=== PATIENT | female | born 1960 ===

== ENCOUNTER 2020-02-08 16:29 | Inpatient (IN) | payer OTHER ==
[~2020-02-08] VITALS: Ht 154.9 cm; Wt 58.0 kg
[2020-02-08] MEDS ORDERED: ONDANSETRON PF 4 MG/2 ML VIAL. IVP ONE ×2 (17:15→19:30)
[2020-02-08] MEDS ORDERED: IV NORMAL SALINE 1,000ML 1,000 ML IV ONE (17:15)
[2020-02-08] MEDS ORDERED: MECLIZINE 12.5 MG TABLET. PO ONE (17:15)
[2020-02-08 17:28] LABS: BASO % 0 % (0-3); EOS # 0.1 x10^3/uL (0.0-0.7); EOS % 1 % (0-3); HEMATOCRIT 36.8 % (36.0-47.0); HEMOGLOBIN 12.1 g/dL (12.0-15.5); LYMPH # 2.8 x10^3/uL (1.0-4.8); LYMPH % 35 % (24-48); MEAN CORPUSCULAR HEMOGLOBIN 31 pg (25-35); MEAN CORPUSCULAR HGB CONC 33 g/dL (31-37); MEAN CORPUSCULAR VOLUME 93 fL (79-100); MONO # 0.5 x10^3/uL (0.0-1.1); MONO % 6 % (0-9); NEUT # 4.5 x10^3uL (1.8-7.7); NEUT % 58 % (31-73); PLATELET COUNT 240 x10^3/uL (140-400); RED BLOOD COUNT 3.94 x10^6/uL (3.50-5.40); RED CELL DISTRIBUTION WIDTH 14.3 % (11.5-14.5); WHITE BLOOD COUNT 7.8 x10^3/uL (4.0-11.0)
[2020-02-08 17:31] LABS: CALCIUM 9.1 mg/dL (8.5-10.1); CREATININE 0.8 mg/dL (0.6-1.0); GFR 73.4; POTASSIUM 3.1 mmol/L (3.5-5.1)
[2020-02-08 17:37] LABS: ALBUMIN 3.7 g/dL (3.4-5.0); ALBUMIN/GLOBULIN RATIO 0.8 (1.0-1.7); TOTAL BILIRUBIN 0.6 mg/dL (0.2-1.0); TOTAL PROTEIN 8.1 g/dL (6.4-8.2)
--- NOTE | 2020-02-08 17:40 | RAD ---
EXAM: CT Head without IV contrast CLINICAL HISTORY: Vertigo COMPARISON: None. TECHNIQUE: Routine CT of the head without contrast. PQRS compliance statement - One or more of the following individualized dose reduction techniques wer e utilized for this study: 1. Automated exposure control 2. Adjustment of the mA and/or kV according to patient size 3. Use of iterative reconstruction technique FINDINGS: There is no evidence of hemorrhage, mass or extra-axial fluid collection. Farrar-white differentiation is maintained with no evidence of edema. There is no mass effect or shift of the intracranial structures. The ventricles, basilar cisterns and cortical sulci are normal in size and configuration for the cheryl ents stated age. The cerebellum and brainstem are unremarkable. The calvarium demonstrates no evidence of fracture or focal lesion. There is normal aeration of the visualized paranasal sinuses and mastoid air cells. The visualized portions of the orbits are normal. IMPRESSION: No evidence for acute intracranial process. Electronically signed by: Nahid Arevalo MD (02/08/2020 5:38 PM) [facility]
--- NOTE | 2020-02-08 17:47 | PHYS DOC ---
Past History Past Medical History: No Pertinent History (ALEX BRASHER MD) Past Surgical History: Appendectomy, (ALEX BRASHER MD) Alcohol Use: None (ALEX BRASHER MD) General Adult EDM: Chief Complaint: NAUSEA/VOMITING/DIARRHEA HPI: HPI: 59-year-old female coming in with "dizziness" since 930 this morning. Patient says she was reading when symptoms started. Denies any falls, head trauma. States the symptoms are worse with movement and better with rest. She has vomited 3 times today due to vertigo. Patient has not had similar symptoms in the past. Denies any recent illness. Denies any hearing changes or ear pain. Denies any weakness, paresthesias or numbness. Denies any diplopia or blurred vision. No headaches. Denies any diarrhea, cough, fevers, neck pain. (ALEX BRASHER MD) Review of Systems: Review of Systems: All other systems within normal limits except for as noted in the HPI (ALEX BRASHER MD) Current Medications: Current Meds: Current Medications Medications (Trade) Dose Ordered Sig/Ann Marie Start Time Stop Time Status Last Admin Dose Admin Meclizine HCl (Antivert) 25 mg 1X ONCE 02/08/20 17:15 02/08/20 17:16 UNV Ondansetron HCl (Zofran) 4 mg 1X ONCE 02/08/20 17:15 02/08/20 17:16 UNV Sodium Chloride 1,000 ml @ 1,000 mls/hr 1X ONCE 02/08/20 17:15 02/08/20 18:14 UNV (ALEX BRASHER MD) Allergies: Allergies: Allergies Coded Allergies Type Severity Reaction Last Updated Verified No Known Drug Allergies 02/08/20 No (ALEX BRASHER MD) Physical Exam: PE: Constitutional: Well developed, well nourished, moderate distress, non-toxic appearance. [] HENT: Normocephalic, atraumatic, bilateral external ears normal, nose normal. [] TMs normal Eyes: PERRLA, conjunctiva normal, no discharge. [] Bilateral nystagmus Neck: No rigidity, supple, no stridor. [] Cardiovascular: Regular rate and rhythm, brisk cap refill [] Lungs & Thorax: Non labored symmetric respirations, no tachypnea or respiratory distress [] Abdomen: Soft, nondistended. Skin: Warm, dry, no erythema, no rash. [] Back: No tenderness, no CVA tenderness. [] Extremities: No deformities, range of motion grossly intact, no lower extremity edema [] Neurologic: Alert and oriented X 3, no focal deficits noted however exam somewhat limited due to patient cooperation due to discomfort. Psychologic: Affect normal, judgement normal, mood normal. [] (ALEX BRASHER MD) Current Patient Data: Labs: Laboratory Tests Test 02/08/20 16:42 White Blood Count 7.8 x10^3/uL (4.0-11.0) Red Blood Count 3.94 x10^6/uL (3.50-5.40) Hemoglobin 12.1 g/dL (12.0-15.5) Hematocrit 36.8 % (36.0-47.0) Mean Corpuscular Volume 93 fL (79-100) Mean Corpuscular Hemoglobin 31 pg (25-35) Mean Corpuscular Hemoglobin Concent 33 g/dL (31-37) Red Cell Distribution Width 14.3 % (11.5-14.5) Platelet Count 240 x10^3/uL (140-400) Neutrophils (%) (Auto) 58 % (31-73) Lymphocytes (%) (Auto) 35 % (24-48) Monocytes (%) (Auto) 6 % (0-9) Eosinophils (%) (Auto) 1 % (0-3) Basophils (%) (Auto) 0 % (0-3) Neutrophils # (Auto) 4.5 x10^3uL (1.8-7.7) Lymphocytes # (Auto) 2.8 x10^3/uL (1.0-4.8) Monocytes # (Auto) 0.5 x10^3/uL (0.0-1.1) Eosinophils # (Auto) 0.1 x10^3/uL (0.0-0.7) Basophils # (Auto) 0.0 x10^3/uL (0.0-0.2) Sodium Level 138 mmol/L (136-145) Potassium Level 3.1 mmol/L (3.5-5.1) L Chloride Level 101 mmol/L (98-107) Carbon Dioxide Level 28 mmol/L (21-32) Anion Gap 9 (6-14) Blood Urea Nitrogen 13 mg/dL (7-20) Creatinine 0.8 mg/dL (0.6-1.0) Estimated GFR (Cockcroft-Gault) 73.4 BUN/Creatinine Ratio 16 (6-20) Glucose Level 131 mg/dL (70-99) H Calcium Level 9.1 mg/dL (8.5-10.1) Magnesium Level 2.0 mg/dL (1.8-2.4) Total Bilirubin 0.6 mg/dL (0.2-1.0) Aspartate Amino Transferase (AST) 18 U/L (15-37) Alanine Aminotransferase (ALT) 23 U/L (14-59) Alkaline Phosphatase 63 U/L (46-116) Total Protein 8.1 g/dL (6.4-8.2) Albumin 3.7 g/dL (3.4-5.0) Albumin/Globulin Ratio 0.8 (1.0-1.7) L Vital Signs: Vital Signs Date Time Temp Pulse Resp B/P (MAP) Pulse Ox O2 Delivery O2 Flow Rate FiO2 02/08/20 16:38 75 16 157/94 (115) 94 Room Air (ALEX BRASHER MD) Labs: Laboratory Tests Test 02/08/20 16:42 White Blood Count 7.8 x10^3/uL (4.0-11.0) Red Blood Count 3.94 x10^6/uL (3.50-5.40) Hemoglobin 12.1 g/dL (12.0-15.5) Hematocrit 36.8 % (36.0-47.0) Mean Corpuscular Volume 93 fL (79-100) Mean Corpuscular Hemoglobin 31 pg (25-35) Mean Corpuscular Hemoglobin Concent 33 g/dL (31-37) Red Cell Distribution Width 14.3 % (11.5-14.5) Platelet Count 240 x10^3/uL (140-400) Neutrophils (%) (Auto) 58 % (31-73) Lymphocytes (%) (Auto) 35 % (24-48) Monocytes (%) (Auto) 6 % (0-9) Eosinophils (%) (Auto) 1 % (0-3) Basophils (%) (Auto) 0 % (0-3) Neutrophils # (Auto) 4.5 x10^3uL (1.8-7.7) Lymphocytes # (Auto) 2.8 x10^3/uL (1.0-4.8) Monocytes # (Auto) 0.5 x10^3/uL (0.0-1.1) Eosinophils # (Auto) 0.1 x10^3/uL (0.0-0.7) Basophils # (Auto) 0.0 x10^3/uL (0.0-0.2) D-Dimer (Sandy) 0.87 mg/L (0.00-0.50) Sodium Level 138 mmol/L (136-145) Potassium Level 3.1 mmol/L (3.5-5.1) Chloride Level 101 mmol/L (98-107) Carbon Dioxide Level 28 mmol/L (21-32) Anion Gap 9 (6-14) Blood Urea Nitrogen 13 mg/dL (7-20) Creatinine 0.8 mg/dL (0.6-1.0) Estimated GFR (Cockcroft-Gault) 73.4 BUN/Creatinine Ratio 16 (6-20) Glucose Level 131 mg/dL (70-99) Calcium Level 9.1 mg/dL (8.5-10.1) Magnesium Level 2.0 mg/dL (1.8-2.4) Total Bilirubin 0.6 mg/dL (0.2-1.0) Aspartate Amino Transf (AST/SGOT) 18 U/L (15-37) Alanine Aminotransferase (ALT/SGPT) 23 U/L (14-59) Alkaline Phosphatase 63 U/L (46-116) Troponin I Quantitative < 0.017 ng/mL (0-0.055) Total Protein 8.1 g/dL (6.4-8.2) Albumin 3.7 g/dL (3.4-5.0) Albumin/Globulin Ratio 0.8 (1.0-1.7) Vital Signs: Vital Signs Date Time Temp Pulse Resp B/P (MAP) Pulse Ox O2 Delivery O2 Flow Rate FiO2 02/08/20 23:42 Room Air 02/08/20 22:02 97.9 63 20 146/86 (106) 96 (MARY ORDOÑEZ DO) EKG: EKG: Sinus rhythm, heart rate 70 bpm, normal axis, no ectopy, normal intervals, T waves unremarkable, no ST elevation or depression [] (ALEX BRASHER MD) Radiology/Procedures: Radiology/Procedures: EXAM: CT Head without IV contrast CLINICAL HISTORY: Vertigo COMPARISON: None. TECHNIQUE: Routine CT of the head without contrast. PQRS compliance statement - One or more of the following individualized dose reduction techniques were utilized for this study: 1. Automated exposure control 2. Adjustment of the mA and/or kV according to patient size 3. Use of iterative reconstruction technique FINDINGS: There is no evidence of hemorrhage, mass or extra-axial fluid collection. Farrar-white differentiation is maintained with no evidence of edema. There is no mass effect or shift of the intracranial structures. The ventricles, basilar cisterns and cortical sulci are normal in size and configuration for the patients stated age. The cerebellum and brainstem are unremarkable. The calvarium demonstrates no evidence of fracture or focal lesion. There is normal aeration of the visualized paranasal sinuses and mastoid air cells. The visualized portions of the orbits are normal. IMPRESSION: No evidence for acute intracranial process. [] (ALEX BRASHER MD) Radiology/Procedures: CLINICAL HISTORY: Reason: dizziness, tinnitis Omni 350 75cc / Spl. Ins tructions: / History: COMPARISON: None available. TECHNIQUE: CT angiogram of the head and neck was performed following the a dministration of IV contrast. Multiplanar reconstructed images were obtained including 3D reconstructed images performed on an independent work station. Stenosis if present in the carotid arteries were measured using NASCET criteria. PQRS compliance statement - One or more of the following individualized dose reduction techniques were utilized for this study: 1. Automated exposure control 2. Adjustment of the mA and/or kV according to patient size 3. Use of iterative reconstruction technique FINDINGS: CTA of the intracranial circulation reveals normal appearing distal internal carotid arteries including the distal cervical, petrous, cavernous and supraclinoid portions. Foci of gas are seen within the cavernous sinus. The anterior cerebral arteries are well visualized and without evidence of stenosis or occlusion. The middle cerebral arteries are well visualized and without evidence of stenosis or occlusion. The posterior cerebral arteries are well visualized and without evidence of stenosis or occlusion. The vertebral basilar system is normal with no evidence of stenosis or occlusion. In the neck, the origins of the great vessels are unremarkable. The common carotid arteries, bilaterally are normal with no evidence of significant stenosis or occlusion. The internal carotid arteries are normal bilaterally with no evidence of stenosis. The vertebral arteries in the neck are well visualized bilaterally and unremarkable. Several 3-4 mm right upper lobe lung nodules are seen. IMPRESSION: 1. No evidence for high-grade stenosis or occlusion of the intracranial cerebral arteries. 2. No evidence for high-grade stenosis or occlusion of the intracranial or extracranial carotid or vertebral arteries. 3. 3-4 mm right upper lobe lung nodules are seen. Follow-up CT chest in 12 months is recommended. Electronically signed by: Nahid Arevalo MD (02/08/2020 8:02 PM) [facility] (MARY ORDOÑEZ DO) Heart Score: Risk Factors: Risk Factors: DM, Current or recent (<one month) smoker, HTN, HLP, family history of CAD, obesity. Risk Scores: Score 0 - 3: 2.5% MACE over next 6 weeks - Discharge Home Score 4 - 6: 20.3% MACE over next 6 weeks - Admit for Clinical Observation Score 7 - 10: 72.7% MACE over next 6 weeks - Early Invasive Strategies (ALEX BRASHER MD) Course & Med Decision Making: Course & Med Decision Making Pending labs at shift change, care transitioned to Dr. Ordoñez [] (ALEX BRASHER MD) Course & Med Decision Making I assumed care of patient after comprehensive signout. I reviewed patient's medical chart and work-up so far I personally evaluated patient and repeated certain aspects of history and physical examination. Patient responded to meclizine given in ER but is still experiencing symptoms. Reiterates everything started approximately 5 weeks ago when golfing, acutely worsened approximately 5 days ago and is having increased frequency of episodes. Continues to have generalized dizziness, horizontal nystagmus, nausea, nonbloody nonbilious emesis and tinnitus. Patient reexamined numerous times but patient's condition failed to improve with ER intervention. I discussed patient's case with on-call neurologist, Dr. Virgen who advised admission for IV fluid rehydration, continued symptomatic control with meclizine and starting 2 mg p.o. Valium 3 times daily. I called Dr. Romo, who agreed need for admission and accepted patient under his care at [facility] I updated patient on proposed plan of care and she was amenable for admission. All questions and concerns addressed prior to ER transport to [facility] in stable condition (MARY ORDOÑEZ DO) Cindy Disclaimer: Cindy Disclaimer: This electronic medical record was generated, in whole or in part, using a voice recognition dictation system. (ALEX BRASHER MD) Departure Departure: Impression: Primary Impression: Acute vestibular neuronitis of both ears Additional Impressions: Hypokalemia Nausea & vomiting Disposition: 09 ADMITTED INPT THIS HOSP Admitting Physician: Dalton Romo (MARY ORDOÑEZ DO) Condition: STABLE Referrals: NICOLE CURIEL MD (PCP) ALEX BRASHER MD Feb 08, 2020 17:47 MARY ORDOÑEZ DO Feb 08, 2020 19:10
--- NOTE | 2020-02-08 18:21 | EKG ---
[address] [address] Test Date: 2020-02-08 Test Time: 16:43:49 Pat Name: ALYSIA DAIGLE Department: Room: Gender: F Flange Turner: MINE : 1960 Requested By: MARY ORDOÑEZ Order Number: [id number] Reading MD: Measurements Intervals [place] Rate: 70 P: 58 DC: 154 QRS: 39 QRSD: 92 T: 39 QT: 426 QTc: 463 Interpretive Statements SINUS RHYTHM NORMAL ECG RI6.02 No previous ECG available for comparison
[2020-02-08] MEDS: POTASSIUM CHLORIDE 20 MEQ TABLET.ER. PO ONE ×2 (18:30→20:39)
[2020-02-08] MEDS ORDERED: IOHEXOL 350 MG/ML 100 ML VIAL. IV ONE (19:00)
[2020-02-08] MEDS ORDERED: diazePAM 2 MG TABLET. PO ONE (19:15)
[2020-02-08] MEDS ORDERED: ONDANSETRON PF 4 MG/2 ML VIAL. IVP PRN (19:15)
--- NOTE | 2020-02-08 20:04 | RAD ---
CLINICAL HISTORY: Reason: dizziness, tinnitis Omni 350 75cc / Spl. Instructions: / History: COMPARISON: None available. TECHNIQUE: CT angiogram of the head and neck was performed following the administration of IV contras t. Multiplanar reconstructed images were obtained including 3D reconstructed images performed on an [employer] work station. Stenosis if present in the carotid arteries were measured using NASCET crite royal. PQRS compliance statement - One or more of the following individualized dose reduction techniques wer e utilized for this study: 1. Automated exposure control 2. Adjustment of the mA and/or kV according to patient size 3. Use of iterative reconstruction technique FINDINGS: CTA of the intracranial circulation reveals normal appearing distal internal carotid arteries includi ng the distal cervical, petrous, cavernous and supraclinoid portions. Foci of gas are seen within the cavernous sinus. The anterior cerebral arteries are well visualized and without evidence of stenosis or occlusion. The middle cerebral arteries are well visualized and without evidence of stenosis or occlusion. The posterior cerebral arteries are well visualized and without evidence of stenosis or occlusion. The vertebral basilar system is normal with no evidence of stenosis or occlusion. In the neck, the origins of the great vessels are unremarkable. The common carotid arteries, bilaterally are normal with no evidence of significant stenosis or occlu alfonso. The internal carotid arteries are normal bilaterally with no evidence of stenosis. The vertebral arteries in the neck are well visualized bilaterally and unremarkable. Several 3-4 mm right upper lobe lung nodules are seen. IMPRESSION: 1. No evidence for high-grade stenosis or occlusion of the intracranial cerebral arteries. 2. No evidence for high-grade stenosis or occlusion of the intracranial or extracranial carotid or v ertebral arteries. 3. 3-4 mm right upper lobe lung nodules are seen. Follow-up CT chest in 12 months is recommended. Electronically signed by: Nahid Arevalo MD (02/08/2020 8:02 PM) [facility]
[2020-02-08 22:02] VITALS: BP 146/86
[2020-02-08] MEDS: IV NORMAL SALINE 1,000ML 1,000 ML IV SCH (23:31)
[2020-02-09] MEDS ORDERED: FINA1TAB3 PO (00:38)
[2020-02-09] MEDS ORDERED: SIMPONI IM (00:38)
[2020-02-09] MEDS ORDERED: PRED2.5T PO (00:38)
[2020-02-09 05:35] VITALS: BP 112/67
[2020-02-09 06:58] LABS: CALCIUM 8.2 mg/dL (8.5-10.1); CREATININE 0.6 mg/dL (0.6-1.0); POTASSIUM 3.5 mmol/L (3.5-5.1)
[2020-02-09 07:01] LABS: GFR 102.3
[2020-02-09] MEDS: predniSONE 5 MG TABLET PO SCH (09:31)
--- NOTE | 2020-02-09 09:35 | PN ---
DATE: SUBJECTIVE: The patient denies any new medical or neurological complaints. She stated her vertigo has been improved overnight and she is able to go to bathroom by herself. She also complains of morning headaches started at 6 o'clock, but she did not ask for any medications. She denies chest pain, shortness of breath or palpitations. OBJECTIVE: GENERAL: Well-developed, well-nourished female, not in acute distress. VITAL SIGNS: Blood pressure 112/67, respiratory rate 20, pulse is 48, oxygen saturation is 97% on room air, temperature 98. HEENT: Normocephalic, atraumatic, otherwise unremarkable. NECK: Supple. Negative for carotid bruit, lymphadenopathy or thyromegaly. LUNGS: Clear to A and P. CARDIOVASCULAR: Regular rate and rhythm, normal S1, S2. ABDOMEN: Soft. Bowel sounds positive. EXTREMITIES: Negative for cyanosis, clubbing or edema. NEUROLOGICAL EXAM: Normal mental status and intact cranial nerves. Cranial nerves unremarkable. No nystagmus this morning. No focal motor or sensory deficit. Deep tendon reflexes were symmetric and hypoactive with gait not tested. IMPRESSION: 1. Acute vertigo and paroxysmal benign positional vertigo. 2. Rheumatoid arthritis. RECOMMENDATIONS: Continue with current management initiated by Dr. Romo and vestibular exercises as tolerated with meclizine and Valium on p.r.n. basis. M Jodi SON MD DR: JUANCARLOS/thien JOB#: [id number] / [id number]
--- NOTE | 2020-02-09 10:11 | CONS ---
DATE OF CONSULTATION: 02/08/2020 NEUROLOGY CONSULTATION REFERRING PHYSICIAN: Dr. Romo. REASON FOR CONSULTATION: Severe dizziness. HISTORY OF PRESENT ILLNESS: This is a 59-year-old right-handed female who was admitted to Emergency Room after she started having severe dizziness described as vertigo, aggravated by even little movements of the head or changing her body positions. The patient did have some nausea, but she did not vomit. The symptoms started at 09:30 in the morning; however, she has been having dizziness as vertigo intermittently in the last few days. She denies any headache, diplopia, dysphagia, chest pain, shortness of breath or palpitation, dysarthria, weakness or paresthesia. Initial nonenhanced head CT scan revealed no evidence of acute intracranial process. After receiving the call from the Emergency Room, I recommended to have an angiogram of the neck and head, which revealed no significant abnormalities. It was recommended to the patient to admitted and started on meclizine and Valium with bed rest and hydration. Currently, the patient is still having dizziness as vertigo with ringing in the ears when she is turning her head. She denies earache, recent head injuries or falls. PAST MEDICAL HISTORY: Significant for hypertension, rheumatoid arthritis, depressions, alcohol abuse and acute GERD. PAST SURGICAL HISTORY: Positive for . FAMILY HISTORY: His mother had leukemia. Father with hypertension. SOCIAL HISTORY: The patient denies smoking, but she drinks alcohol occasionally. CURRENT HOME MEDICATIONS: Prednisone 5 mg daily. ALLERGIES: No known drug allergies. REVIEW OF SYSTEMS: A 10-point review of system was performed as mentioned above in history of present illness. PHYSICAL EXAMINATION: GENERAL: Well-developed, well-nourished female, not in acute distress. She weighs 58 kilos. VITAL SIGNS: Blood pressure is 157/62, respiratory rate 16, pulse is 53, temperature is 97.9, oxygen saturation is 96% on room air. HEENT: Normocephalic, atraumatic, otherwise unremarkable. NECK: Supple. Negative for carotid bruit, lymphadenopathy or thyromegaly. LUNGS: Clear to A and P. CARDIOVASCULAR: Regular rate and rhythm, normal S1, S2. There is no S3, S4 or murmur. ABDOMEN: Soft. Bowel sounds positive. EXTREMITIES: Negative for cyanosis, clubbing or edema. NEUROLOGICAL EXAM: 1. Mental Status: The patient is alert and oriented x 3. Speech is fluent. There are no language dysfunctions. Memory, judgment, and abstracting thinking are normal. The patient denies hallucination or delusion. 2. Cranial Nerves: Visual marlow are full. The pupils are reactive to light and accommodation. The extraocular movements are intact. There is mild 1-2 beat nystagmus on horizontal gaze. There is no facial motor or sensory deficit. Hearing is intact bilaterally. The palate is elevated symmetrically. Sternocleidomastoid muscles are powerful bilaterally. The patient shrugs her shoulders symmetrically, protrudes her tongue in the midline without fasciculation or atrophy. 3. Motor: No focal muscle bulk was seen. The tone is normal. The strength is 5/5 throughout. 4. Sensory Examination: Revealed normal pinprick, light touch, vibratory and position senses. 5. Deep tendon reflexes were symmetric and hypoactive with absent Achilles responses. Gait not tested at this time. LABORATORY DATA: CBC revealed white blood cells of 7.8 thousand, hemoglobin 12.1, hematocrit 36.8, platelet count 240,000. Chemistry revealed sodium of 138, potassium 3.1, chloride 101, CO2 of 28, BUN 13, creatinine 0.8, glucose 131, calcium 9.1. Liver enzymes are normal. Troponin level is normal. Coagulation is high D-dimer at 0.87. DIAGNOSTIC DATA: EKG revealed normal sinus rhythm without acute changes. Initial nonenhanced head CT scan revealed no evidence of acute intracranial process. CT angio of the head and neck revealed no evidence of aneurysm or significant vascular obstruction or vascular stenosis. IMPRESSION: 1. Acute vertigo represents acute vestibulopathy and possible benign positional vertigo. 2. Rheumatoid arthritis. RECOMMENDATIONS: 1. Bed rest with hydration. 2. Valium 2 mg q. 8 hours p.r.n. for dizziness. 3. Meclizine 25 mg t.i.d. p.r.n. for dizziness. 4. Increase physical activities as tolerated with vestibular exercise. M Jodi SON MD DR: JUANCARLOS/thien JOB#: [id number] / [id number]
[2020-02-09] MEDS: IV NORMAL SALINE 1,000ML 1,000 ML IV SCH ×2 (10:25→15:15)
[2020-02-09 10:52] VITALS: BP 133/71
[2020-02-09 15:28] VITALS: BP 149/88
[2020-02-09] MEDS ORDERED: ACETAMINOPHEN 325 MG TABLET PO PRN (15:30)
[2020-02-09] MEDS ORDERED: MECLIZINE 12.5 MG TABLET. PO PRN (15:30)
[2020-02-09] MEDS ORDERED: FOLIC ACID IV ONE (15:45)
[2020-02-09] MEDS ORDERED: THIAMINE IV ONE (15:45)
[2020-02-09] MEDS ORDERED: NORMAL SALINE IV ONE (15:45)
[2020-02-09] MEDS: MULTIVITAMIN with MINERAL TABLET. PO SCH (15:45)
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
--- NOTE | 2020-02-09 18:26 | PN ---
DATE: 02/09/2020 SUBJECTIVE: The patient is sitting at the edge of the bed, continued to have dizziness in certain position when she stands up or move. She also had some headache this morning that has finally subsided. No nausea or vomiting. OBJECTIVE: GENERAL: When I examined her, she looked well and was clearly in no apparent respiratory distress. No pallor, jaundice, cyanosis or thyromegaly. No jugular venous distension. No limb edema. VITAL SIGNS: Her heart rate was 59, blood pressure was 133/71, temperature was 99.3, respiratory rate was 20, and oxygen saturation was 96% on room air. The rest of clinical exam is stable. The patient actually was today able to walk twice to the bathroom. LABORATORY DATA: Her lab work this morning showed serum sodium 141, potassium is much better at 3.5, chloride 107, bicarbonate 28, anion gap of 6, BUN 10, creatinine was 0.6, estimated GFR was 102 mL per minute. Her glucose was 92 and calcium was 8.2. ASSESSMENT AND PLAN: This is a 59-year-old [place] female patient who was admitted with acute vertigo, paroxysmal benign positional vertigo, history of rheumatoid arthritis. Plan is to continue with IV fluid. She is insisting about having a banana bag. We will add also some Tylenol and meclizine. Continue with physical and occupational therapy. If she is stable tomorrow, she can go home. WILNER CHIU MD DR: NAIDA/thien JOB#: [id number] / [id number]
[2020-02-09 20:35] VITALS: BP 130/87
[2020-02-10 06:33] VITALS: BP 125/74
[2020-02-10 06:52] LABS: CALCIUM 8.7 mg/dL (8.5-10.1); CREATININE 0.5 mg/dL (0.6-1.0); GFR 126.3; POTASSIUM 3.7 mmol/L (3.5-5.1)
[2020-02-10] MEDS: predniSONE 5 MG TABLET PO SCH (08:27)
[2020-02-10] MEDS: MULTIVITAMIN with MINERAL TABLET. PO SCH (08:27)
[2020-02-10 11:01] VITALS: BP 138/78
--- NOTE | 2020-02-10 11:18 | PN ---
DATE: SUBJECTIVE: The patient denies any new medical or neurological complaints; however, she continues to have vertigo in bed and she described it as intermittent. She denies headaches, nausea, vomiting, radicular chest pain on the left side; however, she did complain of muscular chest pain on the right side today. Otherwise, the patient is able to walk by herself without assistance. OBJECTIVE: GENERAL: Well-developed, well-nourished female, not in acute distress. VITAL SIGNS: Blood pressure 125/74, respiratory rate 18, pulse is 47, oxygen saturation is 96% on room air, and temperature 97.4. HEENT: Normocephalic, atraumatic, otherwise unremarkable. NECK: Supple. Negative for carotid bruit, lymphadenopathy or thyromegaly. LUNGS: Clear to A and P. CARDIOVASCULAR: Regular rate and rhythm, normal S1, S2. There is no S3, S4 or murmurs. ABDOMEN: Soft. Bowel sounds positive. EXTREMITIES: Negative for cyanosis, clubbing or edema. NEUROLOGICAL: Normal mental status and intact cranial nerves. There is no nystagmus. There are no focal or facial motor or sensory deficits. Cranial nerves are intact without nystagmus. Motor examination: No focal muscle bulk was seen. The strength was 4/5 throughout. Sensory examination revealed normal pinprick, light touch, vibratory and position senses. Deep tendon reflexes were symmetric without pathologic responses. Gait and coordination were normal. IMPRESSION: 1. Acute vertigo, improved and possible paroxysmal benign positional vertigo - improved. 2. Rheumatoid arthritis. RECOMMENDATIONS: Continue with current medical management initiated by Dr. Romo. The patient asked again for banana bag intravenously and the patient wanted to stay another day or 2 until the symptoms are completely resolved. Currently, the patient is neurologically stable. M Jodi SON MD DR: JUANCARLOS/thien JOB#: [id number] / [id number]
[2020-02-10] MEDS ORDERED: GOLI50DI SQ (14:18)
[2020-02-10] MEDS ORDERED: GOLIMUMAB 50 MG SQ SCH (14:30)
[2020-02-10 15:06] VITALS: BP 168/93
[2020-02-10] MEDS ORDERED: FOLIC ACID IV ONE (15:45)
[2020-02-10] MEDS ORDERED: NORMAL SALINE IV ONE (15:45)
[2020-02-10] MEDS ORDERED: THIAMINE IV ONE (15:45)
[2020-02-10] MEDS ORDERED: MVI, ADULT NO.4 WITH VIT K 10 ML, FOLIC ACID INJ 1 MG, THIAMINE INJ 100 MG in IV NORMAL... IV ONE (15:45)
[2020-02-10] MEDS ORDERED: MECL12.573 PO (17:24)
[2020-02-10 18:32] VITALS: BP 143/94
--- NOTE | 2020-02-10 20:26 | NUR ---
PT FINISHED IV INFUSION AT 1950 02/10/20. PT HANDLED INFUSION WELL WITH NO COMPLICATIONS. IV FLUSHED WITH 10ML NS. THIS NURSE REMOVED IV AND APPLIED BAND AID. AGAIN NO COMPLICATIONS AFTER IV REMOVAL. PT WAS ABLE TO AMBULATE OFF OF FLOOR WITH ALL BELONGINGS IN HAND.
== END 2020-02-10 20:25 | disposition home or self-care (01) | DRG 149 ==
LOC: ER 16:29 → 1 SOUTH 19:07
PROVIDERS: ADMIT Internal Medicine; ATTEND Internal Medicine
DX: H81.23 Vestibular neuronitis, bilateral (principal); E87.6 Hypokalemia; H81.10 Benign paroxysmal vertigo, unspecified ear; I10 Essential (primary) hypertension; M06.9 Rheumatoid arthritis, unspecified; Z79.52 Long term (current) use of systemic steroids; Z80.6 Family history of leukemia; Z82.3 Family history of stroke; Z82.49 Family history of ischemic heart disease and other diseases of the circulatory system; Z90.49 Acquired absence of other specified parts of digestive tract; F32.9 Major depressive disorder, single episode, unspecified; K21.9 Gastro-esophageal reflux disease without esophagitis
CPT/HCPCS: 36415; 70450; 70496; 70498; 80048; 80053; 83735; 84484; 85025; 85379; 93005; 96361; 96365; 96375; 96376; J2405; J7512; Q9967; 99285-25; J7030